=== PATIENT | female | born 1990 | race Caucasian/White ===

== ENCOUNTER 2022-05-05 20:44 | Inpatient (IN) | payer MEDICAID ==
[~2022-05-05] VITALS: Ht 147.3 cm; Wt 79.8 kg
[2022-05-05] MEDS: LACTATED RINGERS 1,000 ML IV SCH (11:15)
[2022-05-05 20:25] VITALS: BP 112/62
[2022-05-05] MEDS ORDERED: METHYLERGONOVINE 0.2 MG/ML AMP IM PRN (21:20)
[2022-05-05] MEDS ORDERED: CARBOPROST 250 MCG/ML AMP IM PRN (21:20)
[2022-05-05] MEDS ORDERED: LACTATED RINGERS 500 ML IV SCH (22:00)
[2022-05-05 22:23] LABS: BASOPHILS % (AUTO) 0.3 % (0.0-2.0); EOSINOPHILS # (AUTO) 0.1 K/uL (0-0.4); EOSINOPHILS % (AUTO) 0.9 % (0.0-4.0); HEMATOCRIT 36.7 % (36-48); HEMOGLOBIN 12.2 g/dL (12.0-16.0); LYMPHOCYTES # (AUTO) 1.5 K/uL (2.5-16.5); LYMPHOCYTES % (AUTO) 20.9 % (20.5-51.1); MEAN CORPUSCULAR HEMOGLOBIN 29 pg (27-31); MEAN CORPUSCULAR HGB CONC 33 g/dL (33-37); MEAN CORPUSCULAR VOLUME 85.7 fL (80-94); MONOCYTES # (AUTO) 0.5 K/uL (0.8-1.0); MONOCYTES % (AUTO) 6.9 % (1.7-9.3); PLATELET COUNT (AUTO) 223 K/uL (140-450); RED BLOOD CELL COUNT(AUTO) 4.28 MIL/uL (4.20-5.40); WHITE BLOOD COUNT (AUTO) 7.1 K/uL (4.8-10.8)
[2022-05-05 23:01] LABS: PROTHROMBIN TIME 9.3 secs (10.8-13.4)
[2022-05-05 23:23] LABS: APPEARANCE,URINE CLEAR (CLEAR); BILIRUBIN,URINE NEGATIVE (NEGATIVE); BLOOD, URINE NEGATIVE (NEGATIVE); COLOR,URINE YELLOW (YELLOW); LEUKOCYTE ESTERASE ,URINE NEGATIVE (NEGATIVE); NITRITE, URINE NEGATIVE (NEGATIVE); UGLUCOSE NEGATIVE (NEGATIVE)
[2022-05-06] MEDS ORDERED: MISOPROSTOL 25 MCG TAB VG SCH (00:05)
[2022-05-06 01:02] LABS: ALBUMIN 2.4 g/dL (3.4-5.0); ANION GAP 16.5 (8-16); CARBON DIOXIDE 20.2 mmol/L (21-32); CREATININE 0.5 mg/dL (0.6-1.3); POTASSIUM 3.7 mmol/L (3.5-5.1); TOTAL BILIRUBIN 0.2 mg/dL (0.0-1.0)
[2022-05-06] MEDS ORDERED: MISOPROSTOL 25 MCG TAB ONE (01:22)
[2022-05-06] MEDS: LACTATED RINGERS 1,000 ML IV SCH ×2 (01:29→11:38)
[2022-05-06] MEDS: LACTATED RINGERS 500 ML IV SCH ×2 (03:05→16:57)
[2022-05-06] MEDS ORDERED: PNV1TABL5 PO (04:22)
[2022-05-06] MEDS ORDERED: INSULIN LISPRO SLIDING SCALE 100 UNITS/ML VIAL SUBQ PRN (07:05)
[2022-05-06] MEDS: MISOPROSTOL 25 MCG TAB VG SCH ×2 (13:00→22:00)
[2022-05-06] MEDS ORDERED: LACTATED RINGERS 500 ML IV SCH (13:55)
[2022-05-06] MEDS ORDERED: OXYTOCIN 20 UNITS in LACTATED RINGERS 1,000 ML IV SCH (22:40)
[2022-05-06] MEDS ORDERED: MORPHINE SULFATE 5 MG/ML VIAL IVP PRN (22:40)
[2022-05-06] MEDS ORDERED: ONDANSETRON 4 MG/2 ML VIAL IVP PRN (22:40)
[2022-05-06] MEDS ORDERED: MORPHINE SULFATE 10 MG/ML VIAL ONE (23:11)
[2022-05-06] MEDS ORDERED: ONDANSETRON 4 MG/2 ML VIAL ONE (23:12)
[2022-05-06 23:17] VITALS: BP 120/74
[2022-05-07] MEDS ORDERED: ROPIVACAINE 0.2%/NS PREMIX 200 ML EPI ONE ×2 (01:55→17:06)
[2022-05-07] MEDS ORDERED: fentaNYL citrate 0.05 MG/ML VIAL ONE ×2 (01:56→23:02)
[2022-05-07] MEDS ORDERED: OXYTOCIN 20 UNITS/LR PREMIX 1,000 ML IV ONE ×2 (05:59→23:31)
[2022-05-07] MEDS: LACTATED RINGERS 500 ML IV SCH ×3 (07:45→15:54)
--- NOTE | 2022-05-07 09:35 | NUR ---
PATIENT HAS BEEN SCREENED AND CATEGORIZED LOW NUTRITION RISK. PATIENT WILL BE SEEN WITHIN 7 DAYS OF ADMISSION. 05/12/[address]
[2022-05-07] MEDS ORDERED: GENTAMICIN PER PHARMACY MC PRN ×2 (19:35)
[2022-05-07] MEDS ORDERED: AMPICILLIN 2,000 MG VIAL ONE (19:39)
[2022-05-07] MEDS ORDERED: GENTAMICIN 80 MG/2 ML VIAL ONE (19:53)
[2022-05-07] MEDS ORDERED: GENTAMICIN 120 MG in DEXTROSE 5% 100 ML IV ONE (20:00)
[2022-05-07] MEDS ORDERED: AMPICILLIN 2,000 MG in NACL 0.9% 100 ML IV ONE (20:00)
[2022-05-07] MEDS ORDERED: ceFAZolin 2,000 MG VIAL ONE (22:45)
[2022-05-07] MEDS ORDERED: MIDAZOLAM 2 MG/2 ML VIAL ONE (23:02)
[2022-05-07] MEDS ORDERED: MEPERIDINE 50 MG/ML SYR ONE (23:03)
[2022-05-07] MEDS ORDERED: OXYTOCIN 20 UNITS in LACTATED RINGERS 1,000 ML IV SCH (23:50)
[2022-05-07] MEDS ORDERED: diphenhydrAMINE 50 MG/ML VIAL IVP PRN (23:50)
[2022-05-07] MEDS ORDERED: ONDANSETRON 4 MG/2 ML VIAL IVP PRN (23:50)
[2022-05-07] MEDS ORDERED: MEPERIDINE 25 MG/ML SYR IVP PRN (23:50)
[2022-05-08] MEDS ORDERED: MORPHINE SULFATE 5 MG/ML VIAL IVP PRN (00:35)
[2022-05-08] MEDS ORDERED: MEASLES, MUMPS, AND RUBELLA 1 VIAL SQVAC ONE (00:35)
[2022-05-08] MEDS ORDERED: oxyCODONE/APAP 5/325 MG 1 TAB TAB PO PRN ×2 (00:35)
[2022-05-08] MEDS ORDERED: METHYLERGONOVINE 0.2 MG/ML AMP IM PRN (00:35)
[2022-05-08] MEDS: HYDROmorphone 1 MG/ML AMP IVP PRN ×2 (00:46→00:56)
[2022-05-08] MEDS ORDERED: HYDROmorphone PFS 2 MG/ML SYR ONE (00:48)
[2022-05-08] MEDS ORDERED: GENTAMICIN PER PHARMACY MC PRN (01:45)
[2022-05-08] MEDS ORDERED: AMPICILLIN 1,000 MG VIAL ONE (01:55)
[2022-05-08] MEDS ORDERED: AMPICILLIN 1,000 MG in NACL 0.9% 50 ML IV SCH (02:00)
[2022-05-08] MEDS ORDERED: GENTAMICIN 80 MG in DEXTROSE 5% 100 ML IV ONE (04:00)
[2022-05-08] MEDS: OXYTOCIN 20 UNITS in LACTATED RINGERS 1,000 ML IV SCH ×3 (04:02→20:12)
[2022-05-08] MEDS ORDERED: IBUPROFEN 800 MG TAB PO PRN (08:25)
[2022-05-08] MEDS ORDERED: bisacodyL 10 MG SUPP RC SCH (09:00)
[2022-05-08] MEDS: oxyCODONE/APAP 5/325 MG 1 TAB TAB PO PRN ×2 (09:19→18:53)
[2022-05-08] MEDS: SIMETHICONE 80 MG TAB.CHEW PO PRN ×2 (09:20→20:17)
[2022-05-08] MEDS ORDERED: GENTAMICIN 80 MG in DEXTROSE 5% 100 ML IV SCH ×2 (12:00→21:00)
[2022-05-08] MEDS ORDERED: OXYTOCIN 20 UNITS/LR PREMIX 1,000 ML IV ONE (20:09)
[2022-05-09] MEDS: oxyCODONE/APAP 5/325 MG 1 TAB TAB PO PRN ×3 (01:27→13:50)
[2022-05-09] MEDS: SIMETHICONE 80 MG TAB.CHEW PO PRN (06:37)
[2022-05-09 15:46] LABS: BASOPHILS % (AUTO) 0.2 % (0.0-2.0); EOSINOPHILS # (AUTO) 0.1 K/uL (0-0.4); EOSINOPHILS % (AUTO) 0.8 % (0.0-4.0); HEMATOCRIT 32.3 % (36-48); HEMOGLOBIN 10.7 g/dL (12.0-16.0); LYMPHOCYTES # (AUTO) 1.1 K/uL (2.5-16.5); LYMPHOCYTES % (AUTO) 10.4 % (20.5-51.1); MEAN CORPUSCULAR HEMOGLOBIN 29 pg (27-31); MEAN CORPUSCULAR HGB CONC 33 g/dL (33-37); MEAN CORPUSCULAR VOLUME 86.5 fL (80-94); MONOCYTES # (AUTO) 0.5 K/uL (0.8-1.0); NEUTROPHILS # (AUTO) 8.9 K/uL (1.8-7.7); NEUTROPHILS % (AUTO) 83.6 % (42.2-75.2); PLATELET COUNT (AUTO) 215 K/uL (140-450); RED BLOOD CELL COUNT(AUTO) 3.74 MIL/uL (4.20-5.40); RED CELL DISTRIBUTION WIDTH 15.2 % (11.6-13.7); WHITE BLOOD COUNT (AUTO) 10.7 K/uL (4.8-10.8)
== END 2022-05-09 16:45 | disposition home or self-care (01) | DRG 540 ==
LOC: MFCC 20:44
PROVIDERS: ADMIT Obstetrics & Gynecology; ATTEND Obstetrics & Gynecology
PROC: 10D00Z1 Extraction of Products of Conception, Low, Open Approach (ICD-10-PCS; principal; 2022-05-08)
PROC: 3E033VJ Introduction of Other Hormone into Peripheral Vein, Percutaneous Approach (ICD-10-PCS; 2022-05-08)
DX: O62.0 Primary inadequate contractions (principal); O41.1230 Chorioamnionitis, third trimester, not applicable or unspecified; O24.420 Gestational diabetes mellitus in childbirth, diet controlled; O99.214 Obesity complicating childbirth; E28.2 Polycystic ovarian syndrome; O99.284 Endocrine, nutritional and metabolic diseases complicating childbirth; Z20.822 Contact with and (suspected) exposure to COVID-19; Z3A.38 38 weeks gestation of pregnancy; Z37.0 Single live birth
CPT/HCPCS: 36415; 51702; 59200; 76815; 80053; 81003; 82948; 85025; 85610; 85730; 86592; 86886; 86900; 86901; 90715; J0290; J1170; J1580; J1815; J2175; J2250; J2270; J2405; J2590; J2795; J3010; J7060; J7120; Q0092